=== PATIENT | female | born 1990 | race Two or more races ===

== ENCOUNTER 2020-09-19 21:53 | Emergency (ER) | payer OTHER ==
[~2020-09-19] VITALS: Ht 177.8 cm; Wt 78.9 kg
[2020-09-19] MEDS ORDERED: BUSPIRONE HCL15 MG PO (22:08)
[2020-09-19] MEDS ORDERED: QUETIAPINE FUM400 M1 PO (22:09)
== END 2020-09-20 09:18 | disposition home or self-care (01) ==
LOC: ER 21:53
DX: K29.00 Acute gastritis without bleeding (principal); E10.9 Type 1 diabetes mellitus without complications; R11.2 Nausea with vomiting, unspecified; R10.13 Epigastric pain; Z79.4 Long term (current) use of insulin; Z03.818 Encounter for observation for suspected exposure to other biological agents ruled out